=== PATIENT | female | born 1950 | race Two or more races ===

== ENCOUNTER 2024-09-24 11:32 | Outpatient (RCR) | payer MEDICARE, MEDICAID, SELFPAY ==
[2024-09-21 10:35] LABS: Basophils % (Auto) 1 % (0-2.5); Eosinophils # (Auto) 0.1 Thou/mm3 (0.0-0.5); Eosinophils % (Auto) 3 % (0-10); Hematocrit 36.2 % (36.0-46.0); Hemoglobin 12.8 g/dL (12.0-16.0); Immature Granulocytes % (Auto) 0 % (0-0); Immature Granulocytes Auto 0.01 Thou/mm3 (0.00-0.00); Lymphocytes # (Auto) 1.1 Thou/mm3 (1.0-4.8); Lymphocytes % (Auto) 27 % (10-50); Mean Corpuscular HGB Conc 35.4 g/dl (31.0-37.0); Mean Corpuscular Hemoglobin 32.4 pg (25.0-35.0); Mean Corpuscular Volume 92 fL (80-100); Monocytes # (Auto) 0.5 Thou/mm3 (0.0-0.8); Monocytes % (Auto) 11 % (0-12); Neutrophils # (Auto) 2.3 Thou/mm3 (1.8-7.7); Neutrophils % (Auto) 57 % (37-80); Nucleated Red Blood Cell % 0 /100 WBC (0); Platelet Count 127 Thou/mm3 (140-440); RDW Standard Deviation 40.4 fL (36.4-46.3); Red Blood Count 3.95 Miln/mm3 (4.00-5.20)
[2024-09-21 11:02] LABS: Alanine Aminotransferase 18 U/L (10-49); Albumin, Serum 4.1 gm/dL (3.4-4.8); Albumin/Globulin Ratio 1.5 (1.2-2.2); Alkaline Phosphatase 194 U/L (46-116); Anion Gap 7 (7-16); Aspartate Amino Transferase 15 U/L (0-34); BUN/Creatinine Ratio 20 Ratio (12-20); Bilirubin,Total 0.5 mg/dL (0.3-1.2); Blood Urea Nitrogen 16 mg/dL (9-23); Calcium 9.3 mg/dL (8.3-10.6); Calcium (Corrected) 9.3 mg/dL (8.5-10.1); Carbon Dioxide 25.3 mMol/L (20.0-31.0); Chloride 106 mMol/L (98-107); Creatinine (Component) 0.8 mg/dL (0.6-1.3); Globulin 2.8 gm/dL (2.3-3.5); Glucose 104 mg/dL (74-106); Osmolality,Calculated 276 (275-295); Potassium 3.7 mMol/L (3.4-5.1); Sodium 138 mMol/L (136-145); Total Protein 6.9 gm/dL (5.7-8.2); eGFR > 60 See Note
[2024-09-21 11:09] LABS: Carcinoembryonic Antigen 4.2 ng/mL (0.0-5.0)
--- NOTE | 2024-09-30 14:12 | CTCFLWUP_ITS ---
Patient: ASTRID QUIGLEY : 1950 Page 6 of 7 FOLLOW UP NOTE DATE OF SERVICE: 09/24/2024 NAME: ASTRID QUIGLEY ACCOUNT: [id number] : 1950 AGE: 74 INTERVAL HISTORY: Patient is doing well. He still have numbness and tingling. 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 Ms. Quigley initially had Cologuard sen t which apparently was positive. 08/10/2023: Ms. Quigley had EGD and colonoscopy. Colonoscopy revealed a large obstructing ulcerated mass at 80 cm from the point of entry most likely in the region of the transverse colon. Colonoscopy could not go through that as it is very stenotic. Biopsies were taken. 08/12/2023: Ms. Quigley had a laparoscopic assisted left colectomy with extracorporeal 2 layer handsew n anastomosis and laparoscopic mobilization of splenic flexure. 10/12/2023: [facility] hereditary cancer test 11/09/2023?06/06/2024: The patient received 12 doses of modified FOLFOX 6 in the adjuvant setting. She d id not get oxaliplatin for the last 2 doses due to mild peripheral neuropathy. PAST MEDICAL HISTORY: HYPERTENSION HYPOTHYROID ANEMIA LOW IRON COLON CANCER OTHER MEDICAL HISTORY/CONDITIONS: HYPERTENSION HYPOTHYROID ANEMIA LOW IRON COLON CANCER C SECTION 1979 TUBAL LIGATION 1979 COLONOSCOPY, LEFT HEMICOLECTOMY AT [facility] Aug ?Clone Other Med Hx? FAMILY HISTORY: Father:?DENIES Mother:?DENIES Sibling:?DENIES Children:?DENIES Cancer?History:?COLON?CANCER?DX?08/2023 ?Clone Family Hx? 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 Tobacco?Use:?DENIES ETOH?Use:?DENIES Drug?Note:?DENIES ?Clone Social Hx? 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 Hormone?Use:? CONTROL PILLS IN PAST :?3 Live?Births:?2 Age?1st?:?25 Gynecological?Note:?1MISCARRIAGE, LAST PAPSMEAR DECEMBER 2022 Gynecological?Note?2:?LAST MAMMOGRAM DECEMBER 21, 2022 ?Clone PHOTOGRAPHY SPOTTER Hx? MEDICATIONS: 1. ascorbic acid (vitamin C) - 250 mg 2 tab Daily 2. Compazine - 10 mg 1 tab Three times a day 3. docusate sodium - 100 mg 1 tab Twice a Day 4. ferrous sulfate - 325 mg (65 mg iron) 1 tab Daily 5. gabapentin - 100 mg 1 Capsule Every day before sleep 6. levothyroxine - 112 mcg 1 tab Daily 7. omeprazole - 40 mg 1 Capsule 8. Vitamin B12 - 100 mcg 1 tab Daily 9. zinc sulfate - 220 mg 1 tab Daily?Palabra Meds? Medications Last Reconciled by Sindi Matthew MA on 09/24/2024 ALLERGIES: Ampicillin REVIEW OF SYSTEMS: A complete 14-point review of systems was performed and is negative except as noted in interval histo ry. PHYSICAL EXAMINATION: VITAL SIGNS: Temperature?98, B/P?135/84, Oxygen?Saturation?97% Weight?201.8?lbs (Change?since? 4:?-1.2?lbs) PAIN: 0 - No pain ECOG Performance Status: 0 - Asymptomatic and fully active GENERAL APPEARANCE: Appears well, in no apparent distress, appropriately interactive. HEENT: Normocephalic, no temporal wasting, normal conjunctiva, no scleral icterus, normal hearing, li ps without lesions, neck normal range of motion. CARDIOVASCULAR: Not assessed. PULMONARY: Normal respiratory effort, no respiratory distress or use of accessory muscles, speaking i n full sentences, no tachypnea. EXTREMITIES: No pedal edema or cyanosis. SKIN: Normal skin appearance. NEUROLOGIC: Alert and oriented x4. PSHYCHIATRIC: Appropriate affect, mood normal, behavior normal, intact thought and speech. LABORATORY DATA: I have personally reviewed and interpreted each of the patient?s relevant lab tests, abnormal finding s are below: Date 09/21/24 ??GLUCOSE,RANDOM?(mg/dL) 104 ??BLOOD?UREA?NITROGEN?(mg/dL) 16 ??CREATININE?(mg/dL) 0.80 ??SODIUM?(mmol/L) 138 ??POTASSIUM?(mmol/L) 3.7 ??CHLORIDE?(mmol/L) 106 ??CrCl?(CandG)?(ml/min) 67.50 ??AST/SGOT?(Unit/L) 15 ??ALT/SGPT?(Unit/L) 18 ??ALKALINE?PHOSPHATASE?(Unit/L) 194?H ??BILIRUBIN,?TOTAL?(mg/dL) 0.5 ??PROTEIN?TOTAL?(gm/dl) 6.9 ??ALBUMIN,?SERUM?(gm/dl) 4.1 ??GLOBULIN?(gm/dl) 2.8 ??ALBUMIN/GLOBULIN?RATIO 1.5 ??CALCIUM,?SERUM?(mg/dL) 9.3 ??CALCIUM?SERUM?(CORRECTED)?(mg/dL) 9.3 ASSESSMENT/PLAN: 1. 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 S/p left hemicolectomy (08/12/2023) Tumor sample did show loss of MLH1 and PMS2 expression. [facility] hereditary cancer test is negative for Burgos syndrome. No clinical evidence of recurrence of her malignancy. complains of mild tingling and numbness in the fingers and feet, more so at bedtime. Status post 12 doses of modified FOLFOX 6 completed on 06/06/2024. She did not receive oxaliplatin for last 2 doses due to mild peripheral neuropathy. 2. History of B12 deficiency. Currently on monthly B12 injections. 3. Hypothyroidism on levothyroxine 4. Hypertension 1. Gabapentin 100 mg p.o. nightly as needed. 2. Will see her back in clinic in 4 to 6 weeks with with CBC, CMP as well as CEA done prior to the vi sit. CT chest abdomen pelvis with IV contrast ordered for restaging and to rule out any recurrence CBC CMP CEA CT chest abdomen pelvis with IV contrast to rule out any recurrence RETURN TO CLINIC: BILLING AND COMPLIANCE: I reviewed external records from providers outside my specialty as summarized above. I spent a total of 50 minutes on this patient?s care on the day of their visit excluding time spent related to any bi lled procedures. This time includes time spent with the patient as well as time spent documenting in the medical record, reviewing patients records and tests, obtaining history, placing orders, communi cating with other healthcare professionals, counseling the patient, family or caregiver, and/or care coordination for the diagnoses above. Electronically Signed by: Gilson Mclaughlin MD T: 2:10 PM CC: PCP: Referring: Austen Paniagua This document was completed utilizing speech recognition software. Grammatical errors, random word in sertions, pronoun errors, and incomplete sentences are an occasional consequence of this system due t o software limitations, ambient noise, and hardware issues. Any formal questions or concerns about th e content, text or information contained within the body of this dictation should be directly address ed to the provider for clarification.
== END 2024-10-02 23:59 | disposition home or self-care (01) ==
LOC: SCTC 11:32
PROVIDERS: PCP Internal Medicine Hospice and Palliative Medicine; Referring Provider Internal Medicine Hospice and Palliative Medicine; Visit Provider Internal Medicine Hematology & Oncology
DX: Z08 Encounter for follow-up examination after completed treatment for malignant neoplasm (principal); Z85.038 Personal history of other malignant neoplasm of large intestine; Z90.49 Acquired absence of other specified parts of digestive tract; Z92.21 Personal history of antineoplastic chemotherapy; E53.8 Deficiency of other specified B group vitamins; E03.9 Hypothyroidism, unspecified; Z79.890 Hormone replacement therapy; I10 Essential (primary) hypertension
CPT/HCPCS: 36591; 80053; 82378; 85025; 99212; A4216; J1642; G0463

== ENCOUNTER → 2024-10-11 | Outpatient (CLI) | payer MEDICARE, MEDICAID, SELFPAY ==
[2024-10-11 12:42] LABS: Carcinoembryonic Antigen 3.7 ng/mL (0.0-5.0)
== END | disposition home or self-care (01) ==
LOC: COPL 11:00
PROVIDERS: PCP Internal Medicine Hospice and Palliative Medicine; Referring Provider Specialist; Visit Provider Specialist
DX: Z85.038 Personal history of other malignant neoplasm of large intestine (principal)
CPT/HCPCS: 36415; 82378

== ENCOUNTER 2024-10-24 08:16 | Outpatient (RCR) | payer MEDICARE, MEDICAID, SELFPAY ==
[2024-10-24 09:58] LABS: Basophils % (Auto) 1 % (0-2.5); Eosinophils # (Auto) 0.1 Thou/mm3 (0.0-0.5); Eosinophils % (Auto) 3 % (0-10); Hematocrit 38.4 % (36.0-46.0); Hemoglobin 13.4 g/dL (12.0-16.0); Immature Granulocytes % (Auto) 0 % (0-0); Immature Granulocytes Auto 0.01 Thou/mm3 (0.00-0.00); Lymphocytes # (Auto) 1.1 Thou/mm3 (1.0-4.8); Lymphocytes % (Auto) 28 % (10-50); Mean Corpuscular HGB Conc 34.9 g/dl (31.0-37.0); Mean Corpuscular Hemoglobin 31.2 pg (25.0-35.0); Mean Corpuscular Volume 90 fL (80-100); Monocytes # (Auto) 0.4 Thou/mm3 (0.0-0.8); Monocytes % (Auto) 9 % (0-12); Neutrophils # (Auto) 2.4 Thou/mm3 (1.8-7.7); Neutrophils % (Auto) 59 % (37-80); Nucleated Red Blood Cell % 0 /100 WBC (0); Platelet Count 142 Thou/mm3 (140-440); Red Blood Count 4.29 Miln/mm3 (4.00-5.20)
[2024-10-24 10:18] LABS: Alanine Aminotransferase 12 U/L (10-49); Albumin, Serum 4.1 gm/dL (3.4-4.8); Albumin/Globulin Ratio 1.3 (1.2-2.2); Alkaline Phosphatase 204 U/L (46-116); Anion Gap 7 (7-16); Aspartate Amino Transferase 18 U/L (0-34); BUN/Creatinine Ratio 21 Ratio (12-20); Bilirubin,Total 0.6 mg/dL (0.3-1.2); Blood Urea Nitrogen 17 mg/dL (9-23); Calcium 9.5 mg/dL (8.3-10.6); Calcium (Corrected) 9.5 mg/dL (8.5-10.1); Carbon Dioxide 27.7 mMol/L (20.0-31.0); Chloride 104 mMol/L (98-107); Creatinine (Component) 0.8 mg/dL (0.6-1.3); Globulin 3.1 gm/dL (2.3-3.5); Glucose 96 mg/dL (74-106); Osmolality,Calculated 279 (275-295); Potassium 3.8 mMol/L (3.4-5.1); Sodium 139 mMol/L (136-145); Total Protein 7.2 gm/dL (5.7-8.2); eGFR > 60 See Note
[2024-10-24 10:20] LABS: Carcinoembryonic Antigen 3.5 ng/mL (0.0-5.0)
== END 2024-11-02 23:59 | disposition home or self-care (01) ==
LOC: SCTC 08:16
PROVIDERS: PCP Internal Medicine Hospice and Palliative Medicine; Referring Provider Internal Medicine Hospice and Palliative Medicine; Visit Provider Internal Medicine Hematology & Oncology
DX: C18.4 Malignant neoplasm of transverse colon (principal); Z90.49 Acquired absence of other specified parts of digestive tract; R20.2 Paresthesia of skin; R20.0 Anesthesia of skin; E53.8 Deficiency of other specified B group vitamins; E03.9 Hypothyroidism, unspecified; I10 Essential (primary) hypertension
CPT/HCPCS: 36591; 80053; 82378; 85025; A4216; J1642

== ENCOUNTER 2024-10-26 07:00 | Day surgery (SDC) | payer MEDICARE, MEDICAID, SELFPAY ==
[2024-10-26] VITALS (11 sets, daily range): BP systolic 102–139; BP diastolic 58–87; PULSE 71–92; RESP 12–22; TEMP 36.2–37.2; O2SAT 96–100; BMI 37.1
[2024-10-26] MEDS: DiphenhydrAMINE INJ 50 MG/ML VIAL 25 MG IV (10:02)
[2024-10-26] MEDS: SODIUM CHLORIDE 0.9% 100 ML IV (10:02)
[2024-10-26] MEDS: fentaNYL CIT INJ 50 mCg/ML AMP 2ML (ASD USE ONLY) IV (10:02)
[2024-10-26] MEDS: MIDAZOLAM INJ 1 MG/ML VIAL 2 ML (ASD USE ONLY) 2 MG IV (10:04)
[2024-10-26] MEDS: ONDANSETRON INJ 2 MG/ML INJ 2 ML 4 MG IV (10:06)
== END 2024-10-26 11:05 | disposition home or self-care (01) ==
PROVIDERS: PCP Internal Medicine Hospice and Palliative Medicine; Referring Provider Specialist; Visit Provider Specialist
PROC: 0DBE8ZX Excision of Large Intestine, Via Natural or Artificial Opening Endoscopic, Diagnostic (ICD-10-PCS; CPT 45380; principal; 2024-10-26 09:00)
DX: Z12.11 Encounter for screening for malignant neoplasm of colon (principal); Z85.048 Personal history of other malignant neoplasm of rectum, rectosigmoid junction, and anus; D12.4 Benign neoplasm of descending colon; K64.9 Unspecified hemorrhoids; K57.30 Diverticulosis of large intestine without perforation or abscess without bleeding
CPT/HCPCS: 45385; 45398; A4649; J1200; J2250; J2405; J3010; J7050

== ENCOUNTER → 2024-10-30 | Outpatient (CLI) | payer MEDICARE, MEDICAID, SELFPAY ==
--- NOTE | 2024-10-30 14:00 | XR_ITS ---
Examination: CT chest with intravenous contrast CT abdomen with intravenous contrast CT pelvis with intravenous contrast 2-D coronal and sagittal reconstructions Time of exam: October 30, 2024 1457 hours INDICATIONS: Diagnosis malignant neoplasm transverse colon post colonoscopy 4 days ago, staging CTDI: vol (mGy) : 27.7 DLP: (mGycm): 1182 Technique: Multiple axial images of the chest, abdomen and pelvis with intravenous contrast, 3.0 mm slice thickness. Images obtained post intravenous injection Isovue 370 60 cc. 2-D sagittal and coronal reconstructions. Low dose protocols were performed. One or more of the following dose reduction techniques were used; automated exposure control, adjustment of the mA and/or KV according to patient size, use of iterative reconstruction technique. Findings: No thoracic aortic aneurysm dilatation No pulmonary artery emboli No paratracheal tracheobronchial or bronchopulmonary adenopathy 12 mm nodule with calcification anterior segment right upper lobe No pneumonia or pulmonary edema No noncalcified pulmonary nodules No visualized liver or splenic lesions Gallbladder wall appears mildly thickened No pancreatic or adrenal mass Aorta normal size No hydronephrosis No abdominal lymphadenopathy 7 cm right pelvic mass contiguous with the fundus of the uterus No bowel obstruction Prominent osteopenia IMPRESSION: No mediastinal lymphadenopathy No noncalcified pulmonary nodules Recommend hepatic sonography to exclude gallbladder wall thickening No abdominal or pelvic lymphadenopathy 7 cm right pelvic mass contiguous with the fundus of uterus, recommend pelvic sonography follow-up
== END | disposition home or self-care (01) ==
LOC: SCAT 13:33
PROVIDERS: Referring Provider Internal Medicine Hematology & Oncology; Visit Provider Internal Medicine Hematology & Oncology
DX: R19.00 Intra-abdominal and pelvic swelling, mass and lump, unspecified site (principal); C18.4 Malignant neoplasm of transverse colon
CPT/HCPCS: 71260; 74177; A4649; Q9967

== ENCOUNTER 2024-11-29 14:16 | Outpatient (RCR) | payer MEDICARE, MEDICAID, SELFPAY ==
[2024-11-28 09:49] LABS: Basophils % (Auto) 1 % (0-2.5); Eosinophils # (Auto) 0.1 Thou/mm3 (0.0-0.5); Eosinophils % (Auto) 3 % (0-10); Hematocrit 36.1 % (36.0-46.0); Hemoglobin 12.8 g/dL (12.0-16.0); Immature Granulocytes % (Auto) 0 % (0-0); Immature Granulocytes Auto 0.01 Thou/mm3 (0.00-0.00); Lymphocytes % (Auto) 26 % (10-50); Mean Corpuscular HGB Conc 35.5 g/dl (31.0-37.0); Mean Corpuscular Hemoglobin 31.8 pg (25.0-35.0); Mean Corpuscular Volume 90 fL (80-100); Monocytes # (Auto) 0.4 Thou/mm3 (0.0-0.8); Monocytes % (Auto) 10 % (0-12); Neutrophils # (Auto) 2.4 Thou/mm3 (1.8-7.7); Neutrophils % (Auto) 61 % (37-80); Nucleated Red Blood Cell % 0 /100 WBC (0); Platelet Count 137 Thou/mm3 (140-440); RDW Standard Deviation 40.2 fL (36.4-46.3); Red Blood Count 4.02 Miln/mm3 (4.00-5.20); White Blood Count 3.9 Thou/mm3 (3.6-11.0)
[2024-11-28 10:11] LABS: Alanine Aminotransferase 15 U/L (10-49); Albumin, Serum 3.9 gm/dL (3.4-4.8); Albumin/Globulin Ratio 1.3 (1.2-2.2); Alkaline Phosphatase 194 U/L (46-116); Anion Gap 9 (7-16); Aspartate Amino Transferase 17 U/L (0-34); BUN/Creatinine Ratio 18 Ratio (12-20); Bilirubin,Total 0.5 mg/dL (0.3-1.2); Blood Urea Nitrogen 14 mg/dL (9-23); Calcium 9.6 mg/dL (8.3-10.6); Calcium (Corrected) 9.7 mg/dL (8.5-10.1); Carbon Dioxide 25.7 mMol/L (20.0-31.0); Chloride 107 mMol/L (98-107); Creatinine (Component) 0.8 mg/dL (0.6-1.3); Glucose 97 mg/dL (74-106); Osmolality,Calculated 283 (275-295); Sodium 142 mMol/L (136-145); Total Protein 6.9 gm/dL (5.7-8.2); eGFR > 60 See Note
== END 2024-11-30 23:59 | disposition home or self-care (01) ==
LOC: SCTC 14:16
PROVIDERS: PCP Internal Medicine Hospice and Palliative Medicine; Referring Provider Internal Medicine Hematology & Oncology; Visit Provider Internal Medicine Hematology & Oncology
DX: Z08 Encounter for follow-up examination after completed treatment for malignant neoplasm (principal); Z85.038 Personal history of other malignant neoplasm of large intestine; Z90.49 Acquired absence of other specified parts of digestive tract; Z92.21 Personal history of antineoplastic chemotherapy; E53.8 Deficiency of other specified B group vitamins; G62.9 Polyneuropathy, unspecified; I10 Essential (primary) hypertension; E03.9 Hypothyroidism, unspecified; Z79.890 Hormone replacement therapy
CPT/HCPCS: 36591; 80053; 82378; 85025; 99212; A4216; J1642; G0463

== ENCOUNTER → 2024-11-30 | Outpatient (CLI) | payer MEDICARE, MEDICAID, SELFPAY ==
--- NOTE | 2024-11-30 11:30 | XR_ITS ---
Examination: Pelvic ultrasound, transabdominal, complete Technique: Transabdominal ultrasound of the pelvis performed using grayscale imaging Date and time of exam: November 22, 2024 1113 hrs. Indications: CT examination October 22, 2024 subcentimeter right pelvic mass contiguous with the uterus Findings: Uterus 13.6 cm endometrial stripe 1.1 cm Right uterine fundal mass 8.3 x 5.7 x 7.8 cm Ovaries obscured by bowel gas Impression: Large uterine fundal mass 8.3 x 5.7 x 7.8 cm, differential would include malignant neoplasm uterus, recommend MRI pelvis follow-up pre and postcontrast
--- NOTE | 2024-11-30 11:30 | XR_ITS ---
Examination: Transvaginal ultrasound of the pelvis, complete Technique: Transvaginal sonographic images pelvis performed using pinto scale imaging Exam date and time: November 22, 2024 1140 hrs. Indications: CT pelvis October 30, 2024 subcentimeter right pelvic mass contiguous with the uterus. Findings: Uterus 7.8 cm endometrial stripe 0.5 cm Right uterine fundal mass 7.7 x 5.4 x 7.1 cm Ovaries obscured by bowel gas Impression: Large uterine fundal mass 7.7 x 5.4 x 7.1, differential would include malignant neoplasm of the uterus, recommend MRI pelvis follow-up pre and postcontrast .
== END | disposition home or self-care (01) ==
LOC: CDIM 11:13
PROVIDERS: Referring Provider Obstetrics & Gynecology; Visit Provider Obstetrics & Gynecology
DX: R19.00 Intra-abdominal and pelvic swelling, mass and lump, unspecified site (principal)
CPT/HCPCS: 76830; 76856

== ENCOUNTER → 2025-01-26 | Outpatient (CLI) | payer MEDICARE, MEDICAID, SELFPAY ==
[2025-01-25 16:49] LABS: Alanine Aminotransferase 13 U/L (10-49); Albumin, Serum 3.9 gm/dL (3.4-4.8); Albumin/Globulin Ratio 1.4 (1.2-2.2); Alkaline Phosphatase 184 U/L (46-116); Anion Gap 6 (7-16); Aspartate Amino Transferase 15 U/L (0-34); BUN/Creatinine Ratio 19 Ratio (12-20); Bilirubin,Total 0.5 mg/dL (0.3-1.2); Blood Urea Nitrogen 17 mg/dL (9-23); Calcium (Corrected) 9.1 mg/dL (8.5-10.1); Carbon Dioxide 27.8 mMol/L (20.0-31.0); Chloride 109 mMol/L (98-107); Creatinine (Component) 0.9 mg/dL (0.6-1.3); Globulin 2.8 gm/dL (2.3-3.5); Glucose 123 mg/dL (74-106); Osmolality,Calculated 287 (275-295); Potassium 3.7 mMol/L (3.4-5.1); Sodium 143 mMol/L (136-145); Total Protein 6.7 gm/dL (5.7-8.2); eGFR > 60 See Note
--- NOTE | 2025-01-26 12:00 | XR_ITS ---
Examination: MRI pelvis with intravenous contrast. MRI pelvis without intravenous contrast. Date and time of exam: January 26, 2025 1252 hours, comparison MRI pelvis dated August 16, 2023, transvaginal pelvic sonography 01/28/2025 INDICATIONS: Uterine fundal mass 7.7 x 5.4 x 7.1 cm 1 transvaginal pelvic sonogram November 30, 2024 Technique: Multiple axial, sagittal and coronal sections of the pelvis obtained. Transverse images, TR 6020, TE 107. T1 weighted transverse images, TR 582, TE 9.5. T2-weighted sagittal images, TR 4000, TE 105. T2-weighted sagittal images, TR 4000, TE 5. Coronal images, TR 4210, TE 107. Axial and coronal images are obtained post 18 cc intravenous injection, gadolinium. Findings: Uterus 8 x 8 x 7 cm Anterior uterine fundal mass 8 x 5 x 6 cm circumscribed Mild enhancement on the postcontrast images No adnexal mass Amount free fluid in the pelvis No pelvic adenopathy IMPRESSION: 8 x 5 x 6 cm circumscribed uterine fundal mass most consistent with fibroid degeneration
== END | disposition home or self-care (01) ==
LOC: SMRI 11:20
PROVIDERS: Referring Provider Obstetrics & Gynecology; Visit Provider Obstetrics & Gynecology
DX: R19.09 Other intra-abdominal and pelvic swelling, mass and lump (principal); D25.9 Leiomyoma of uterus, unspecified
CPT/HCPCS: 36415; 72197; 80053; A9579

== ENCOUNTER 2025-02-21 12:58 | Outpatient (RCR) | payer MEDICARE, MEDICAID, SELFPAY | END 2025-03-02 23:59 | disposition home or self-care (01) | LOC: SCTC 12:58 | PROVIDERS: PCP Internal Medicine Hospice and Palliative Medicine; Referring Provider Internal Medicine Hematology & Oncology; Visit Provider Internal Medicine Hematology & Oncology | DX: C18.5 Malignant neoplasm of splenic flexure (principal); Z90.49 Acquired absence of other specified parts of digestive tract; E53.8 Deficiency of other specified B group vitamins; E03.9 Hypothyroidism, unspecified; I10 Essential (primary) hypertension | CPT/HCPCS: 36591; A4216; J1642 ==

== ENCOUNTER → 2025-04-30 | Outpatient (CLI) | payer MEDICARE, MEDICAID, SELFPAY ==
--- NOTE | 2025-04-30 12:30 | XR_ITS ---
Examination: Transvaginal ultrasound of the pelvis, complete Technique: Transvaginal sonographic images pelvis performed using pinto scale imaging Exam date and time: April 30, 2025 1224 hours Comparison November 30, 2024 INDICATIONS: Transvaginal pelvic sonogram November 30, 2024 uterine fundal mass 7.7 x 5.4 x 7.1 cm FINDINGS: Uterus 7.9 cm, uterine fundal exophytic mass 7.0 x 5.4 x 7.0 cm Endometrial stripe 0.8 cm Ovaries obscured by bowel gas IMPRESSION: No significant change in exophytic uterine fundal mass, likely fibroid degeneration.
== END | disposition home or self-care (01) ==
LOC: CDIM 12:03
PROVIDERS: Referring Provider Obstetrics & Gynecology; Visit Provider Obstetrics & Gynecology
DX: D25.9 Leiomyoma of uterus, unspecified (principal)
CPT/HCPCS: 76830

== ENCOUNTER 2025-05-23 11:10 | Outpatient (RCR) | payer MEDICARE, MEDICAID, SELFPAY ==
[2025-05-22 09:59] LABS: Basophils # (Auto) 0.0 Thou/mm3 (0.0-0.2); Basophils % (Auto) 1 % (0-2.5); Eosinophils # (Auto) 0.1 Thou/mm3 (0.0-0.5); Eosinophils % (Auto) 2 % (0-10); Hematocrit 37.5 % (36.0-46.0); Hemoglobin 12.8 g/dL (12.0-16.0); Immature Granulocytes Auto 0.02 Thou/mm3 (0.00-0.00); Lymphocytes # (Auto) 1.0 Thou/mm3 (1.0-4.8); Lymphocytes % (Auto) 22 % (10-50); Mean Corpuscular HGB Conc 34.1 g/dl (31.0-37.0); Mean Corpuscular Hemoglobin 31.2 pg (25.0-35.0); Mean Corpuscular Volume 92 fL (80-100); Monocytes # (Auto) 0.4 Thou/mm3 (0.0-0.8); Monocytes % (Auto) 9 % (0-12); Neutrophils # (Auto) 3.0 Thou/mm3 (1.8-7.7); Neutrophils % (Auto) 66 % (37-80); Nucleated Red Blood Cell # 0.00 Thou/mm3 (0.00-0.00); Nucleated Red Blood Cell % 0 /100 WBC (0); Platelet Count 167 Thou/mm3 (140-440); RDW Standard Deviation 40.4 fL (36.4-46.3); Red Blood Count 4.10 Miln/mm3 (4.00-5.20); White Blood Count 4.6 Thou/mm3 (3.6-11.0)
[2025-05-22 10:18] LABS: Alanine Aminotransferase 12 U/L (10-49); Albumin, Serum 3.8 gm/dL (3.4-4.8); Albumin/Globulin Ratio 1.4 (1.2-2.2); Alkaline Phosphatase 193 U/L (46-116); Anion Gap 9 (7-16); Aspartate Amino Transferase 15 U/L (0-34); BUN/Creatinine Ratio 19 Ratio (12-20); Bilirubin,Total 0.6 mg/dL (0.3-1.2); Blood Urea Nitrogen 15 mg/dL (9-23); Calcium 9.7 mg/dL (8.3-10.6); Calcium (Corrected) 9.9 mg/dL (8.5-10.1); Carbon Dioxide 25.0 mMol/L (20.0-31.0); Chloride 107 mMol/L (98-107); Creatinine (Component) 0.8 mg/dL (0.6-1.3); Globulin 2.7 gm/dL (2.3-3.5); Glucose 121 mg/dL (74-106); Osmolality,Calculated 283 (275-295); Potassium 4.0 mMol/L (3.4-5.1); Sodium 141 mMol/L (136-145); Total Protein 6.5 gm/dL (5.7-8.2); eGFR > 60 See Note
[2025-05-22 10:19] LABS: Carcinoembryonic Antigen 2.7 ng/mL (0.0-5.0)
--- NOTE | 2025-05-23 12:01 | CTCFLWUP_ITS ---
Patient: ASTRID QUIGLEY : 1950 Page 6 of 8 FOLLOW UP NOTE DATE OF SERVICE: 05/23/2025 NAME: ASTRID QUIGLEY ACCOUNT: [id number] : 1950 AGE: 75 INTERVAL HISTORY: Patient is doing well. Patient is not taking her vitd3 daily .neuropathy is minimal. No alcohol or smoking. Stable weight. Worried about uterine fibroid . ONCOLOGY HISTORY:?[facility] Oncology Hx? 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 Ms. Quigley initially had Cologuard test which apparently was positive. 08/10/2023: Ms. Quigley had EGD and colonoscopy. Colonoscopy revealed a large obstructing ulcerated mass at 80 cm from the point of entry most likely in the region of the transverse colon. Colonoscopy could not go through that as it is very stenotic. Biopsies were taken. 08/12/2023: Ms. Quigley had a laparoscopic assisted left colectomy with extracorporeal 2 layer handsewn anastomosis and laparoscopic mobilization of splenic flexure. 10/12/2023: [facility] hereditary cancer test 11/09/2023?06/06/2024: The patient received 12 doses of modified FOLFOX 6 in the adjuvant setting. She did not get oxaliplatin for the last 2 doses due to mild peripheral neuropathy. 10/30/2024 CT scan with contrast IMPRESSION: No mediastinal lymphadenopathy No noncalcified pulmonary nodules Recommend hepatic sonography to exclude gallbladder wall thickening No abdominal or pelvic lymphadenopathy 7 cm right pelvic mass contiguous with the fundus of uterus, recommend pelvic sonography follow-up 10/30/[address] scan showed mild hypermetabolic activity with wall thickening Followed by colonoscopy which was negative PAST MEDICAL HISTORY: HYPERTENSION HYPOTHYROID ANEMIA LOW IRON COLON CANCER OTHER MEDICAL HISTORY/CONDITIONS: HYPERTENSION HYPOTHYROID ANEMIA LOW IRON COLON CANCER C SECTION 1979 TUBAL LIGATION 1979 COLONOSCOPY, LEFT HEMICOLECTOMY AT [facility] MASS REMOVAL Aug FAMILY HISTORY: Father:?DENIES Mother:?DENIES Sibling:?DENIES Children:?DENIES Cancer?History:?COLON?CANCER?DX?08/2023 SOCIAL HISTORY: 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 Hormone?Use:? CONTROL PILLS IN PAST :?3 Live?Births:?2 Age?1st?:?25 Gynecological?Note:?1MISCARRIAGE, LAST PAPSMEAR DECEMBER 2022 Gynecological?Note?2:?LAST MAMMOGRAM DECEMBER 21, 2022 MEDICATIONS: 1. ascorbic acid (vitamin C) - 250 mg 2 tab Daily 2. Compazine - 10 mg 1 tab Three times a day 3. docusate sodium - 100 mg 1 tab Twice a Day 4. ferrous sulfate - 325 mg (65 mg iron) 1 tab Daily 5. gabapentin - 100 mg 1 Capsule Every day before sleep 6. levothyroxine - 112 mcg 1 tab Daily 7. omeprazole - 40 mg 1 Capsule 8. Vitamin B12 - 100 mcg 1 tab Daily 9. zinc sulfate - 220 mg 1 tab Daily?Palabra Meds? Medications Last Reconciled by Sindi Matthew MA on 05/23/2025 ALLERGIES: Ampicillin REVIEW OF SYSTEMS: A complete 14-point review of systems was performed and is negative except as noted in interval history. PHYSICAL EXAMINATION:?[facility] PE? VITAL SIGNS: PAIN: 0 - No pain ECOG Performance Status: 0 - Asymptomatic and fully active GENERAL APPEARANCE: Appears well, in no apparent distress, appropriately interactive. HEENT: Normocephalic, no temporal wasting, normal conjunctiva, no scleral icterus, normal hearing, lips without lesions, neck normal range of motion. CARDIOVASCULAR: Not assessed. PULMONARY: Normal respiratory effort, no respiratory distress or use of accessory muscles, speaking in full sentences, no tachypnea. EXTREMITIES: No pedal edema or cyanosis. SKIN: Normal skin appearance. NEUROLOGIC: Alert and oriented x4. PSHYCHIATRIC: Appropriate affect, mood normal, behavior normal, intact thought and speech. LABORATORY DATA: I have personally reviewed and interpreted each of the patient?s relevant lab tests, abnormal findings are below: Date 01/25/25 05/22/25 ??WHITE?BLOOD?COUNT?(Thou/mm3) ? 4.6 ??RED?BLOOD?COUNT?(Miln/mm3) ? 4.10 ??HEMOGLOBIN?(gm/dl) ? 12.8 ??HEMATOCRIT?(%) ? 37.5 ??PLATELET?COUNT?(Thou/mm3) ? 167 ??NEUTROPHILS?%,?AUTO?(%) ? 66 ??LYMPH?%,?AUTO?(%) ? 22 ??NEUTROPHILS,?AUTO?(Thou/mm3) ? 3.0 ??GLUCOSE,RANDOM?(mg/dL) 123?H 121?H ??BLOOD?UREA?NITROGEN?(mg/dL) 17 15 ??CREATININE?(mg/dL) 0.90 0.80 ??SODIUM?(mmol/L) 143 141 ??POTASSIUM?(mmol/L) 3.7 4.0 ??CHLORIDE?(mmol/L) 109?H 107 ??CrCl?(CandG)?(ml/min) 60.00 67.84 ??AST/SGOT?(Unit/L) 15 15 ??ALT/SGPT?(Unit/L) 13 12 ??ALKALINE?PHOSPHATASE?(Unit/L) 184?H 193?H ??BILIRUBIN,?TOTAL?(mg/dL) 0.5 0.6 ??PROTEIN?TOTAL?(gm/dl) 6.7 6.5 ??ALBUMIN,?SERUM?(gm/dl) 3.9 3.8 ??GLOBULIN?(gm/dl) 2.8 2.7 ??ALBUMIN/GLOBULIN?RATIO 1.4 1.4 ??CALCIUM,?SERUM?(mg/dL) 9.0 9.7 ??CALCIUM?SERUM?(CORRECTED)?(mg/dL) 9.1 9.9 ??CEA?(O*)?(ng/ml) ? 2.7 ASSESSMENT/PLAN:?Maria G Mclaughlin Assessment/Plan? 1. Stage IIIa (pT3, pN2A), moderately differentiated colonic mucinous adenocarcinoma of the splenic flexure. S/p left hemicolectomy (08/12/2023) Tumor sample did show loss of MLH1 and PMS2 expression. [facility] hereditary cancer test is negative for Burgos syndrome. No clinical evidence of recurrence of her malignancy. complains of mild tingling and numbness in the fingers and feet, more so at bedtime. Status post 12 doses of modified FOLFOX 6 completed on 06/06/2024. She did not receive oxaliplatin for last 2 doses due to mild peripheral neuropathy. 2. History of B12 deficiency. Currently on monthly B12 injections. 3. Hypothyroidism on levothyroxine 4. Hypertension 1. Gabapentin 100 mg p.o. nightly as needed. On 10/30/2024 CT scan negative CBC CMP CEA Naterra for mrd Advised to take MVT daily Referred to hog sawyer ORDERS: Order # Description [id number] Comprehensive Metabolic Panel - 12 + CBC with Auto Diff + [id number] CEA [id number] MD Follow Up 6 Month [id number] DXA L-Spine and Hip RETURN TO CLINIC: I reviewed the diagnosis, prognosis, and recommended treatment/procedure options with the patient (and/or their legal aircraft sales representative), including the potential benefits, risks, side effects and alternative therapies. We also discussed the option of no treatment and the possibility of clinical trial participation, if applicable. All questions were addressed, and they demonstrated understanding. They provided informed consent to proceed with the proposed plan of care. BILLING AND COMPLIANCE: I reviewed external records from providers outside my specialty as summarized above. I spent a total of 50 minutes on this patient?s care on the day of their visit excluding time spent related to any billed procedures. This time includes time spent with the patient as well as time spent documenting in the medical record, reviewing patients records and tests, obtaining history, placing orders, communicating with other healthcare professionals, counseling the patient, family or caregiver, and/or care coordination for the diagnoses above. Electronically Signed by: Gilson Mclaughlin MD T: 11:58 AM CC: PCP: Referring: Gilson Mclaughlin This document was completed utilizing speech recognition software. Grammatical errors, random word insertions, pronoun errors, and incomplete sentences are an occasional consequence of this system due to software limitations, ambient noise, and hardware issues. Any formal questions or concerns about the content, text or information contained within the body of this dictation should be directly addressed to the provider for clarification.
== END 2025-06-02 23:59 | disposition home or self-care (01) ==
LOC: SCTC 11:10
PROVIDERS: PCP Internal Medicine Hospice and Palliative Medicine; Referring Provider Internal Medicine Hematology & Oncology; Visit Provider Internal Medicine Hematology & Oncology
DX: Z08 Encounter for follow-up examination after completed treatment for malignant neoplasm (principal); Z85.038 Personal history of other malignant neoplasm of large intestine; Z90.49 Acquired absence of other specified parts of digestive tract; Z92.21 Personal history of antineoplastic chemotherapy; G62.9 Polyneuropathy, unspecified; E53.8 Deficiency of other specified B group vitamins; E03.9 Hypothyroidism, unspecified; Z79.890 Hormone replacement therapy; I10 Essential (primary) hypertension
CPT/HCPCS: 36591; 80053; 82378; 85025; 99213; A4216; J1642; G0463

== ENCOUNTER 2025-08-21 08:21 | Outpatient (RCR) | payer MEDICARE, MEDICAID, SELFPAY | END 2025-09-01 23:59 | disposition home or self-care (01) | LOC: SCTC 08:21 | PROVIDERS: PCP Internal Medicine Hospice and Palliative Medicine; Referring Provider Internal Medicine Hospice and Palliative Medicine; Visit Provider Internal Medicine Hematology & Oncology | DX: Z85.038 Personal history of other malignant neoplasm of large intestine (principal); Z90.49 Acquired absence of other specified parts of digestive tract; E53.8 Deficiency of other specified B group vitamins; E03.9 Hypothyroidism, unspecified; Z79.890 Hormone replacement therapy; I10 Essential (primary) hypertension; G62.0 Drug-induced polyneuropathy; T45.1X5D Adverse effect of antineoplastic and immunosuppressive drugs, subsequent encounter | CPT/HCPCS: 36591; A4216; J1642 ==